=== PATIENT | male | born 1955 | race Caucasian/White ===

== ENCOUNTER → 2017-03-02 | Outpatient (CLI) | payer OTHER ==
[~2017-03-02] MED LIST: ALLO300T PO; LISI-167 PO; LOSA1TAB17 PO; MELO15TA6 PO; NAPR550T3 PO; NEBI5TAB2 PO
== END | disposition home or self-care (01) ==
LOC: CFH 06:57
PROVIDERS: ATTEND Physician Assistant
DX: E83.110 Hereditary hemochromatosis (principal)
CPT/HCPCS: 76705

== ENCOUNTER → 2017-04-04 | Outpatient (CLI) | payer OTHER ==
[~2017-04-04] MED LIST changes: -NAPR550T3 PO; +NAPR550T30 PO
== END | disposition home or self-care (01) ==
LOC: RAD 11:52
PROVIDERS: ATTEND Family Medicine
DX: I77.810 Thoracic aortic ectasia (principal); Q25.46 Tortuous aortic arch

== ENCOUNTER → 2017-09-13 | Outpatient (CLI) | payer OTHER ==
[~2017-09-13] MED LIST changes: -LOSA1TAB17 PO; +LOSA1TAB22 PO; +NAPR-850 PO; -NAPR550T30 PO
== END | disposition home or self-care (01) ==
LOC: CFH 08:00
PROVIDERS: ATTEND Physician Assistant
DX: N28.1 Cyst of kidney, acquired (principal); E83.110 Hereditary hemochromatosis; Z88.0 Allergy status to penicillin
CPT/HCPCS: 76705

== ENCOUNTER → 2018-10-03 | Outpatient (CLI) | payer OTHER ==
[~2018-10-03] MED LIST changes: -NEBI5TAB2 PO; +NEBI5TAB3 PO
== END | disposition home or self-care (01) ==
LOC: CFH 10:20
PROVIDERS: ATTEND Physician Assistant
DX: E83.110 Hereditary hemochromatosis (principal)
CPT/HCPCS: 76705

== ENCOUNTER → 2019-04-29 | Outpatient (CLI) | payer OTHER | END | disposition home or self-care (01) | LOC: CFH 06:49 | PROVIDERS: ATTEND Physician Assistant | DX: E83.110 Hereditary hemochromatosis (principal) | CPT/HCPCS: 76705 ==

== ENCOUNTER 2019-08-21 09:28 | Emergency (ER) | payer OTHER ==
[~2019-08-21] VITALS: Ht 180.3 cm; Wt 104.0 kg
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
[2019-08-21] MEDS ORDERED: DIPH,PERTUSS(ACELL),TET VAC/PF 0.5 ML IM-VACC ONE ×2 (09:49→10:00)
[2019-08-21] MEDS ORDERED: NEOSPORIN OINT. PKT 1 PACKET ONE ×2 (09:51)
--- NOTE | 2019-08-21 10:14 | NUR ---
PT MEDICATED PER EMAR. AWARE OF POC. NADN. DENIES NEEDS.
[2019-08-21] MEDS ORDERED: DEXAMETHASONE 4 MG TABLET ONE (10:27)
[2019-08-21] MEDS ORDERED: DEXAMETHASONE 4 MG TABLET PO ONE (10:30)
== END 2019-08-21 10:49 | disposition home or self-care (01) ==
LOC: ED 10:12
DX: S00.93XA Contusion of unspecified part of head, initial encounter (principal); B34.9 Viral infection, unspecified; E78.5 Hyperlipidemia, unspecified; I10 Essential (primary) hypertension; X58.XXXA Exposure to other specified factors, initial encounter; Y93.89 Activity, other specified; Y92.89 Other specified places as the place of occurrence of the external cause; Y99.8 Other external cause status
CPT/HCPCS: 87081; 87147; 87880; 90471; 90715

== ENCOUNTER 2019-11-13 08:30 | Outpatient (CLI) | payer MEDICARE, OTHER | END 2019-11-13 23:59 | disposition home or self-care (01) | LOC: CFH 08:30 | PROVIDERS: ATTEND Physician Assistant | DX: E83.110 Hereditary hemochromatosis (principal) | CPT/HCPCS: 76705 ==

== ENCOUNTER → 2020-05-14 | Outpatient (CLI) | payer MEDICARE, OTHER | END | disposition home or self-care (01) | LOC: CFH 07:14 | PROVIDERS: ATTEND Physician Assistant | DX: R16.0 Hepatomegaly, not elsewhere classified (principal); E83.110 Hereditary hemochromatosis | CPT/HCPCS: 76705 ==

== ENCOUNTER → 2020-11-16 | Outpatient (CLI) | payer MEDICARE, OTHER | END | disposition home or self-care (01) | LOC: RAD 07:23 | PROVIDERS: ATTEND Physician Assistant | DX: E83.110 Hereditary hemochromatosis (principal) | CPT/HCPCS: 76705 ==

== ENCOUNTER → 2021-05-17 | Outpatient (CLI) | payer MEDICARE, OTHER | END | disposition home or self-care (01) | LOC: RAD 07:24 | PROVIDERS: ATTEND Physician Assistant | DX: E83.110 Hereditary hemochromatosis (principal) | CPT/HCPCS: 76705 ==